=== PATIENT | female | born 1955 | race Caucasian/White ===

== ENCOUNTER 2016-09-26 08:31 | Outpatient (CLI) | payer OTHER ==
[~2016-09-26] VITALS: Ht 161.3 cm; Wt 85.7 kg
[~2016-09-26 08:31] MED LIST: ADAL10SY SQ; BNZ20T GT; CHOL200010 PO; EST1.25T PO; FOLI1TAB24 PO; HYDR-3857 PO; LVT.15T PO; METH2.5T PO; MOVE FREE ULTR1 EACH PO; OXYC10TA7 PO; POTA99TA7 PO; PRED5TAB PO; TRAM50TA2 PO
--- OUTSIDE RECORDS SUMMARY | 2016-09-26 08:33 | XMS REPORT | Continuity of Care Document ---
Author Author [facility] Organization [facility] Address Unknown Phone Unavailable Care Team Providers Care Soup Mixer Name Role Phone MAANDA OGLESBY MD PCP Insurance Providers Payer Name Policy Number Subscriber Name Relationship Unknown Advance Directives Directive Response Recorded Date/Time Advance Directives No 01/19/15 10:00am Health Care Power of Archivist Political History No 01/19/15 10:00am Organ Donor No 01/19/15 10:00am Resuscitation Status Full Code 01/19/15 10:00am Problems No known problems or medical conditions. Medications Medication Dose Route Sig Days/Qty Instructions Order Date Discontinued Date Status Benazepril Hcl 20 Mg GT DAILY 01/19/15 Active Estrogens Conjugated 1.25 Mg PO DAILY 01/19/15 Active Levothyroxine Sodium (Levothroid) 150 Mcg PO DAILY 01/19/15 Active Methotrexate Sodium 2.5 Mg PO WEEKLY 01/19/15 Active Prednisone 5 Mg PO DAILY 01/19/15 Active Adalimumab 10 Mg SQ WEEKLY 01/19/15 Active Folic Acid 1 Mg PO DAILY 01/19/15 Active Hydrocodone Bit/Acetaminophen 1 Each PO EVERY 8HRS 01/19/15 Active Tramadol Hcl 50 Mg PO DAILY 01/19/15 Active Cholecalciferol 2,000 Unit PO DAILY 01/19/15 Active Potassium 99 Mg PO DAILY 01/19/15 Active Cartilage/Collagen II/Hyaluron 1 Each PO DAILY 01/19/15 Active Social History Social History Problem Response Recorded Date/Time Recent Foreign Travel No 01/19/2015 10:00am Smoking Status Never a Smoker 01/19/2015 10:00am Query Response Start Date Stop Date Smoking Status Never a Smoker Hospital Discharge Instructions No hospital discharge instructions. Plan of Care No plan of care. Functional Status No functional status results. Allergies, Adverse Reactions, Alerts Allergen Type Severity Reaction Status Last Updated No Known Drug Allergies Active 01/18/15 Immunizations No immunization records. Vital Signs Acute Vital Signs Vital Response Date/Time Temperature (Fahrenheit) 98.2 degrees F (97.6 - 99.5) Temperature (Calculated Celsius) 36.26534 degrees C (36.4 - 37.5) Temperature Source Tympanic Pulse Rate (adult) 84 bpm (60 - 90) Respiratory Rate 18 bpm (12 - 24) O2 Sat by Pulse Oximetry 95 % (88 - 100) Blood Pressure 172/75 mm Hg Pain Pain Intensity 0 Height (Feet) 5 feet Height (Inches) 3.50 inches Height (Calculated Centimeters) 161.269703 cm Weight (Pounds) 206 pounds Weight (Calculated Grams) 91367.029 gm Weight (Calculated Kilograms) 93.030046 kilograms Calculated BMI 35.91 Results No known relevant diagnostic tests, laboratory data and/or discharge summary. Procedures Procedure Status Date Provider(s) Diagnostic colonoscopy completed 01/19/15 OLIVIA BAUMAN MD Encounters Encounter Location Date/Time Registered [facility] 01/19/15 9:53am Registered Clinic [facility] 01/17/15 10:45am
[2016-09-26] MEDS ORDERED: TRIAMCINOLONE ACET (KENALOG-40) 40 MG/ML 1 ML VIAL ONE ×2 (08:35→08:49)
[2016-09-26] MEDS ORDERED: BUPIVACAINE 0.25% 30 ML (SENSORCAINE) VIAL ONE (08:36)
[2016-09-26 08:47] VITALS: BP 145/80
[2016-09-26 09:34] VITALS: BP 143/105
--- NOTE | 2016-09-26 12:49 | Pain Medicine-Procedure ---
Procedure Pre-Op/Post-Op Diagnosis Diagnosis: disc disorder with radiculopathy, lumbar Indications for Operation Low back and hip pain Attending Surgeon Eloise Procedure Date of Service: Sep 26, 2016 Procedure: Lumbar Epidural Steroid Injection at the L5/S1 Level under Fluoroscopic Guidance and bilateral sacroiliac joint injections Procedure: Patient was identified in the holding area. After risks, benefits, and alternatives were discussed with the patient, informed consent was obtained. Patient was brought to the fluoroscopy suite and placed prone on the procedure room table. A time out was performed. Vital signs were monitored throughout the procedure. The patients low back was prepped and draped in the usual sterile fashion. The patients skin was anesthetized using 2% Lidocaine. A Tuohy needle was inserted and advanced to the L4-L5 epidural space under fluoroscopic guidance using the loss of resistance technique and intermittent projection of fluoroscopy. There was no paresthesia with needle placement. The needle position was confirmed in both the AP and lateral view. Aspiration was then positive for blood and the needle was withdrawn. The patients skin was anesthetized using 2% Lidocaine. A Tuohy needle was inserted and advanced to the L5-S1 epidural space under fluoroscopic guidance using the loss of resistance technique and intermittent projection of fluoroscopy. There was no paresthesia with needle placement. After negative aspiration 2ml of non-ionic contrast was injected under live fluoroscopy which showed good spread of the contrast in the epidural space at the appropriate level, there was no intravascular or subarachnoid spread. Again, after negative aspiration for heme or CSF, 2 ml of 0.25% Bupivicaine, 2ml of preservative free normal saline, and 80mg of Kenalog was injected. The needle was removed and a sterile bandage was placed. Attention was then directed to the right sacroiliac joint which was identified under fluoroscopic guidance. The skin overlying the posterior inferior one third of the sacroiliac joint was anesthetized with 1 percent lidocaine and a 22 -gauge 3-1/2 inch needle was inserted and advanced into the joint. Following negative aspiration a total of 20 mg of Kenalog and 2 mL of 0.25 percent bupivacaine was injected. Needle was flushed with lidocaine and removed. Attention was then directed to the left sacroiliac joint were the same procedure was performed and the same solution was injected. Sterile bandages were applied. Patient tolerated the procedures well with no apparent complications. Complications None SENAIT YANG MD Sep 26, 2016 12:49 pm
== END 2016-09-26 09:36 | disposition home or self-care (01) ==
LOC: CARD 08:31
PROVIDERS: ATTEND Pain Medicine Pain Medicine
DX: M51.16 Intervertebral disc disorders with radiculopathy, lumbar region (principal); M53.3 Sacrococcygeal disorders, not elsewhere classified; Z79.899 Other long term (current) drug therapy
CPT/HCPCS: 27096; 62323

== ENCOUNTER → 2016-11-20 | Outpatient (CLI) | payer OTHER ==
--- NOTE | 2016-11-20 14:18 | Diagnostic Imaging Report ---
PROCEDURE: MRI lumbar spine. TECHNIQUE: Multiplanar, multisequence MRI of the lumbar spine was performed without contrast. INDICATION: Low back pain. FINDINGS: There is grade 1 spondylolisthesis of L4 over L5. There are preserved vertebral body heights. There is disc desiccation at all levels. Significant disc height loss at L3/4 and to a lesser extent at L2/3, L4/5, and L5/S1 levels seen. There is edema in the marrow around endplates of L4/5 and L1/2 levels with less prominent degree of edema around all other endplates in the lumbar spine. The spinal cord and cauda equina appear grossly unremarkable. Mild disc herniations seen in the lower thoracic spine with no significant spinal canal stenosis noted. T12/L1: There is a mild disc bulge and mild facet hypertrophy with no spinal canal or foraminal stenosis. At L1/2: There is a diffuse disc bulge, asymmetric to the right side with associated anfk-jl-khgwzydg spinal canal stenosis reducing the AP dimension of the spinal canal to 7.3 mm. The lateral recesses demonstrate mild narrowing bilaterally. The foramina demonstrate no significant stenosis. L2/3: There is diffuse disc bulge and cdnndqmy-ej-tnmqfm facet arthropathy. There is severe spinal canal stenosis reducing the AP dimension of the canal to 5.5 mm and bilateral lateral recess stenosis, moderate on the right and moderate to severe on the left. The foramina demonstrate mild stenosis on the left and no significant stenosis on the right side. L3/4: There is a diffuse disc bulge and moderate facet arthropathy associated with severe spinal canal stenosis reducing the AP dimension of the central canal to 4.2 mm and associated with moderate to severe lateral recess stenosis bilaterally. There is mild foraminal stenosis on the left and moderate foraminal stenosis on the right side with the far lateral aspect of the disc bilaterally but more prominent on the right abutting the exiting spinal nerves on both sides at this level. L4/5: There is grade 1 spondylolisthesis and diffuse disc bulge seen. This is associated with auydnzwo-qh-oxfwzr central canal stenosis reducing the AP dimension of the spinal canal to 6 mm and bilateral severe lateral recess stenosis. There is particularly severe facet arthropathy bilaterally at this level. The lateral recess stenosis is compressing the descending L5 nerve roots, worse on the right side. There is also bilateral foraminal stenosis of a severe degree. L5/S1: There is diffuse disc bulge with no central canal or lateral recess stenosis. There is bilateral foraminal stenosis of moderate degree, worse on the right side. IMPRESSION: Advanced degenerative disc and facet arthropathy with associated grade 1 spondylolisthesis of L4 over L5. There is multilevel severe spinal canal stenosis as described. Dictated by: Dictated on workstation # [id number]
== END ==
LOC: RAD 13:11
PROVIDERS: ATTEND Pain Medicine Pain Medicine
DX: M54.5 Low back pain (principal)
CPT/HCPCS: 72148

== ENCOUNTER 2016-12-22 12:49 | Outpatient (CLI) | payer OTHER ==
[~2016-12-22] VITALS: Ht 161.3 cm; Wt 85.7 kg
[2016-12-22] MEDS ORDERED: BUPIVACAINE 0.25% 30 ML (SENSORCAINE) VIAL ONE (12:53)
[2016-12-22] MEDS ORDERED: TRIAMCINOLONE ACET (KENALOG-40) 40 MG/ML 1 ML VIAL ONE (12:53)
[2016-12-22 13:05] VITALS: BP 149/83
[2016-12-22 14:00] VITALS: BP 149/77
--- NOTE | 2016-12-22 14:40 | Pain Medicine-Procedure ---
Procedure Pre-Op/Post-Op Diagnosis Diagnosis: disc disorder with radiculopathy, lumbar Indications for Operation Low back and hip pain Attending Surgeon Eloise Procedure Date of Service: Dec 22, 2016 Procedure: Lumbar Epidural Steroid Injection at the L5/S1 Level under Fluoroscopic Guidance and bilateral sacroiliac joint injections Procedure: Patient was identified in the holding area. After risks, benefits, and alternatives were discussed with the patient, informed consent was obtained. Patient was brought to the fluoroscopy suite and placed prone on the procedure room table. A time out was performed. Vital signs were monitored throughout the procedure. The patients low back was prepped and draped in the usual sterile fashion. The patients skin was anesthetized using 2% Lidocaine. A Tuohy needle was inserted and advanced to the L5-S1 epidural space under fluoroscopic guidance using the loss of resistance technique and intermittent projection of fluoroscopy. There was no paresthesia with needle placement. The needle position was confirmed in both the AP and lateral view. After negative aspiration 2ml of non-ionic contrast was injected under live fluoroscopy which showed good spread of the contrast in the epidural space at the appropriate level, there was no intravascular or subarachnoid spread. Again, after negative aspiration for heme or CSF, 2 ml of 0.25% Bupivicaine, 2ml of preservative free normal saline, and 80mg of Kenalog was injected. The needle was removed and a sterile bandage was placed. Attention was then directed to the right sacroiliac joint which was identified under fluoroscopic guidance. The skin overlying the posterior inferior one third of the sacroiliac joint was anesthetized with 1 percent lidocaine and a 22 -gauge 3-1/2 inch needle was inserted and advanced into the joint. Following negative aspiration a total of 20 mg of Kenalog and 2 mL of 0.25 percent bupivacaine was injected. Needle was flushed with lidocaine and removed. Attention was then directed to the left sacroiliac joint were the same procedure was performed and the same solution was injected. Sterile bandages were applied. Patient tolerated the procedures well with no apparent complications. Complications None SENAIT YANG MD Dec 22, 2016 2:40 pm
== END 2016-12-22 14:01 | disposition home or self-care (01) ==
LOC: CARD 12:49
PROVIDERS: ATTEND Pain Medicine Pain Medicine
DX: M51.16 Intervertebral disc disorders with radiculopathy, lumbar region (principal); M53.3 Sacrococcygeal disorders, not elsewhere classified; Z79.899 Other long term (current) drug therapy
CPT/HCPCS: 27096; 62323

== ENCOUNTER 2017-01-08 09:26 | Outpatient (RCR) | payer OTHER | END 2017-01-19 12:36 | disposition home or self-care (01) | PROVIDERS: ATTEND Physician Assistant | DX: M48.06 Spinal stenosis, lumbar region (principal); M43.16 Spondylolisthesis, lumbar region ==

== ENCOUNTER 2019-07-12 14:43 | Emergency (ER) | payer MEDICARE, OTHER ==
[~2019-07-12] VITALS: Ht 160 cm; Wt 81.6 kg
[2019-07-12] MEDS ORDERED: ASPIRIN 81 MG CHEW (CHILDREN'S ASA) PO ONE (15:15)
[2019-07-12 15:38] LABS: BASOPHILS % (AUTO) 0 % (0-10); EOSINOPHILS # (AUTO) 0.1 10^3/uL (0.0-0.3); EOSINOPHILS % (AUTO) 1 % (0-10); HEMATOCRIT 42 % (35-52); HEMOGLOBIN 14.1 G/DL (11.5-16.0); LYMPHOCYTES # (AUTO) 1.7 X 10^3 (1.0-4.0); LYMPHOCYTES % (AUTO) 26 % (12-44); MEAN CORPUSCULAR HEMOGLOBIN 34 PG (25-34); MEAN CORPUSCULAR HGB CONC 34 G/DL (32-36); MEAN CORPUSCULAR VOLUME 99 FL (80-99); MEAN PLATELET VOLUME 8.8 FL (7.4-10.4); MONOCYTES # (AUTO) 0.7 X 10^3 (0.0-1.0); MONOCYTES % (AUTO) 11 % (0-12); NEUTROPHILS % (AUTO) 62 % (42-75); PLATELET COUNT 296 10^3/uL (130-400); RED CELL DISTRIBUTION WIDTH 14.2 % (10.0-14.5); WHITE BLOOD COUNT 6.5 10^3/uL (4.3-11.0)
[2019-07-12 16:02] LABS: ALANINE AMINOTRANSFERASE 24 U/L (0-55); ALBUMIN 4.2 GM/DL (3.2-4.5); ALKALINE PHOSPHATASE 81 U/L (40-136); BILIRUBIN,TOTAL 0.5 MG/DL (0.1-1.0); BUN/CREATININE RATIO 19; CALCIUM 9.7 MG/DL (8.5-10.1); CARBON DIOXIDE 24 MMOL/L (21-32); CHLORIDE 105 MMOL/L (98-107); CREATININE SERUM 0.91 MG/DL (0.60-1.30); GFR ESTIMATED > 60; GLUCOSE 98 MG/DL (70-105); MAGNESIUM 1.9 MG/DL (1.6-2.4); POTASSIUM 4.3 MMOL/L (3.6-5.0); SODIUM 137 MMOL/L (135-145); TOTAL PROTEIN 8.4 GM/DL (6.4-8.2)
--- NOTE | 2019-07-12 16:05 | Diagnostic Imaging Report ---
INDICATION: Shortness of breath. Portable chest at 03:55 p.m. FINDINGS: Heart size and pulmonary vascularity are normal. Lungs are clear. There are no effusions or pneumothoraces. IMPRESSION: Negative chest. Dictated by: Dictated on workstation # [id number]
[2019-07-12 16:20] LABS: INR 0.9 (0.8-1.4); PROTHROMBIN TIME PATIENT 12.7 SEC (12.2-14.7)
--- NOTE | 2019-07-12 16:29 | ED Dyspnea ---
General Chief Complaint: Cardiac/General Problems Stated Complaint: ELEV HR Nursing Triage Note: last couple weeks has been having difficulty with increased sob with activity and heaviness in chest area also feels heart rate increase with activity, dizziness as well. Source of Information: Patient Exam Limitations: No Limitations History of Present Illness Date Seen by Provider: Jul 12, 2019 Time Seen by Provider: 16:27 Initial Comments To ER per private vehicle from Dr. Mclean's office where she presented with dyspnea progressive over the past 2 weeks. No history of this. She does have a history of lupus, arthritis, on prednisone daily and hypothyroidism. She reports chest heaviness, constant for about 2 weeks. She reports sensation of tachycardia. No fever or chills or cough. She was noted in his office to be ta chycardic at about 115 to 120 and slightly hypoxic at 93% room air. Severity: Moderate Activities at Onset: None Prior Episodes/Possible Cause: No Prior Episodes Associated Symptoms: Denies Symptoms Allergies and Home Medications Allergies Coded Allergies: No Known Drug Allergies (Unverified , 01/18/15) Home Medications Adalimumab 10 Mg/0.2 Ml Syringekit, 10 MG SQ WEEKLY, (Reported) Benazepril Hcl 20 Mg Tab, 20 MG GT DAILY, (Reported) Cartilage/Collagen II/Hyaluron 1 Each Tablet, 1 EACH PO DAILY, (Reported) Cholecalciferol 2,000 Unit Tablet, 2,000 UNIT PO DAILY, (Reported) Estrogens Conjugated 1.25 Mg Tab, 1.25 MG PO DAILY, (Reported) Folic Acid 1 Mg Tablet, 1 MG PO DAILY, (Reported) Hydrocodone Bit/Acetaminophen Y Tab, 1 EACH PO Q8H, (Reported) Levothyroxine Sodium 150 Mcg Tablet, 150 MCG PO DAILY, (Reported) Methotrexate Sodium 2.5 Mg Tablet, 2.5 MG PO WEEKLY, (Reported) Oxycodone HCl 10 Mg Tablet, 10 MG PO Q4H Prescribed by: SHANDRA THOMAS on 01/19/161808 Potassium 99 Mg Tablet, 99 MG PO DAILY, (Reported) Prednisone 5 Mg Tablet, 5 MG PO DAILY, (Reported) Tramadol Hcl 50 Mg Tablet, 50 MG PO DAILY, (Reported) Patient Home Medication List Home Medication List Reviewed: Yes Review of Systems Review of Systems Constitutional: see HPI EENTM: see HPI Respiratory: see HPI, dyspnea on exertion, short of breath Cardiovascular: no symptoms reported Genitourinary: no symptoms reported Musculoskeletal: no symptoms reported Skin: no symptoms reported Psychiatric/Neurological: No Symptoms Reported Endocrine: No Symptoms Reported Hematologic/Lymphatic: No Symptoms Reported Past Eagjqcz-Emfwti-Zrdnbt Hx Patient Social History Alcohol Use: Rarely Uses Recreational Drug Use: No Smoking Status: Never a Smoker Recent Foreign Travel: No Contact w/Someone Who Travel: No Recent Infectious Disease Expo: No Past Medical History Surgeries: Yes Appendectomy, Eye Surgery, Hysterectomy, Orthopedic Respiratory: No Cardiac: Yes Hypertension Neurological: No [employer] History: Hysterectomy Genitourinary: No Gastrointestinal: No Musculoskeletal: Yes Rheumatoid Arthritis Endocrine: Yes (THYROID) Hypothyroidsim HEENT: No Cancer: No Psychosocial: No Blood Disorders: No Physical Exam Vital Signs Vital Signs - First Documented 07/12/19 15:04 Temp 37.1 Pulse 119 Resp 20 B/P (MAP) 123/78 (93) Pulse Ox 97 Capillary Refill : Less Than 3 Seconds Height, Weight, BMI Height: 5'3.50" Weight: 189lbs. 0.0oz. 85.749502tz; 31.00 BMI Method:Stated General Appearance: No Apparent Distress, WD/WN HEENT: PERRL/EOMI, Normal ENT Inspection Neck: Full Range of Motion, Normal Inspection; No JVD Respiratory: Normal Breath Sounds, No Accessory Muscle Use, No Respiratory Distress; No Crackles Cardiovascular: Normal Peripheral Pulses, Tachycardia Gastrointestinal: Non Tender, Soft Extremity: Normal Capillary Refill, Normal Inspection Neurologic/Psychiatric: Alert, Oriented x3 Skin: Normal Color, Warm/Dry Progress/Results/Core Measures Results/Orders Lab Results Laboratory Tests Test 07/12/19 15:30 Range/Units White Blood Count 6.5 4.3-11.0 10^3/uL Red Blood Count 4.20 L 4.35-5.85 10^6/uL Hemoglobin 14.1 11.5-16.0 G/DL Hematocrit 42 35-52 % Mean Corpuscular Volume 99 80-99 FL Mean Corpuscular Hemoglobin 34 25-34 PG Mean Corpuscular Hemoglobin Concent 34 32-36 G/DL Red Cell Distribution Width 14.2 10.0-14.5 % Platelet Count 296 130-400 10^3/uL Mean Platelet Volume 8.8 7.4-10.4 FL Neutrophils (%) (Auto) 62 42-75 % Lymphocytes (%) (Auto) 26 12-44 % Monocytes (%) (Auto) 11 0-12 % Eosinophils (%) (Auto) 1 0-10 % Basophils (%) (Auto) 0 0-10 % Neutrophils # (Auto) 4.0 1.8-7.8 X 10^3 Lymphocytes # (Auto) 1.7 1.0-4.0 X 10^3 Monocytes # (Auto) 0.7 0.0-1.0 X 10^3 Eosinophils # (Auto) 0.1 0.0-0.3 10^3/uL Basophils # (Auto) 0.0 0.0-0.1 10^3/uL Prothrombin Time 12.7 12.2-14.7 SEC INR Comment 0.9 0.8-1.4 Activated Partial Thromboplast Time 31 24-35 SEC Sodium Level 137 135-145 MMOL/L Potassium Level 4.3 3.6-5.0 MMOL/L Chloride Level 105 98-107 MMOL/L Carbon Dioxide Level 24 21-32 MMOL/L Anion Gap 8 5-14 MMOL/L Blood Urea Nitrogen 17 7-18 MG/DL Creatinine 0.91 0.60-1.30 MG/DL Estimat Glomerular Filtration Rate > 60 BUN/Creatinine Ratio 19 Glucose Level 98 70-105 MG/DL Calcium Level 9.7 8.5-10.1 MG/DL Corrected Calcium 9.5 8.5-10.1 MG/DL Magnesium Level 1.9 1.6-2.4 MG/DL Total Bilirubin 0.5 0.1-1.0 MG/DL Aspartate Amino Transf (AST/SGOT) 35 H 5-34 U/L Alanine Aminotransferase (ALT/SGPT) 24 0-55 U/L Alkaline Phosphatase 81 40-136 U/L Myoglobin 51.8 10.0-92.0 NG/ML Troponin I < 0.028 <0.028 NG/ML B-Type Natriuretic Peptide < 10.0 <100.0 PG/ML Total Protein 8.4 H 6.4-8.2 GM/DL Albumin 4.2 3.2-4.5 GM/DL Thyroid Stimulating Hormone (TSH) 0.02 L 0.35-4.94 UIU/ML Free Thyroxine 1.36 0.70-1.48 NG/DL My Orders Orders - RENNY GONZALEZ METAL TECHNICIAN Cbc With Automated Diff (07/12/19 15:11) Magnesium (07/12/19 15:11) Chest 1 View, Ap/Pa Only (07/12/19 15:11) Ekg Tracing (07/12/19 15:11) Cardiac Profile 1 (07/12/19 15:11) Comprehensive Metabolic Panel (07/12/19 15:11) Myoglobin Serum (07/12/19 15:11) Protime With Inr (07/12/19 15:11) Partial Thromboplastin Time (07/12/19 15:11) O2 (07/12/19 15:11) Monitor-Rhythm Ecg Trace Only (07/12/19 15:11) Lipid Panel (07/13/19 06:00) Ed Iv/Invasive Line Start (07/12/19 15:11) Aspirin Chewable Tablet (Baby Aspirin Ch (07/12/19 15:15) BNP (07/12/19 16:25) Thyroid Stimulating Hormone (07/12/19 16:25) Free T4 (Free Thyroxine) (07/12/19 16:25) Ct Angio Chest W (07/12/19 16:26) Iohexol Injection (Omnipaque 350 Mg/Ml 1 (07/12/19 17:00) Received Contrast (Hold Metformin- Contr (07/12/19 17:00) Ns (Ivpb) (Sodium Chloride 0.9% Ivpb Bag (07/12/19 17:00) Medications Given in ED Current Medications Medications Dose Ordered Sig/Haley Route Start Time Stop Time Status Last Admin Dose Admin Aspirin 324 mg ONCE ONCE PO 07/12/19 15:15 07/12/19 15:16 DC 07/12/19 15:40 324 MG Iohexol 75 ml ONCE ONCE IV 07/12/19 17:00 07/12/19 17:01 DC 07/12/19 17:05 75 ML Sodium Chloride 100 ml ONCE ONCE IV 07/12/19 17:00 07/12/19 17:01 DC 07/12/19 17:05 100 ML Vital Signs/I&O 07/12/19 15:04 Temp 37.1 Pulse 119 Resp 20 B/P (MAP) 123/78 (93) Pulse Ox 97 Blood Pressure Mean: 93 POS Departure Impression Primary Impression: Bilateral pneumonia Qualified Codes: J18.9 - Pneumonia, unspecified organism Disposition: HOME, SELF-CARE Condition: Stable Departure-Patient Inst. Decision time for Depature: 17:37 Referrals: AMANDA OGLESBY MD (PCP/Family) Primary Care Physician Patient Instructions: Chest Pain (DC) Add. Discharge Instructions: 1. Return to ER for any worsening. Follow-up with Dr. Oglesby later this week for recheck. Inhaler 2 puffs every 4 hours and antibiotics as directed. All discharge instructions reviewed with patient and/or family. Voiced understandi ng. Scripts Doxycycline Hyclate (Doxycycline Hyclate) 100 Mg Tablet 100 MG PO BID, #20 TAB 0 Refills Prov: RENNY GONZALEZ APRN 07/12/19 Albuterol Sulfate (PROAIR HFA) 1 Puff Puff 2 PUFF IH Q4H PRN for WHEEZING, #1 PUFF 1 PUFF = 90 MCG Prov: RENNY GONZALEZ APRN 07/12/19 Copy Copies To 1: AMANDA OGLESBY MD, PETER J APRN Jul 12, 2019 16:29 POS
[2019-07-12] MEDS ORDERED: NS 100 ML (IVPB) BAG IV ONE (17:00)
[2019-07-12] MEDS ORDERED: IOHEXOL 350 MG/ML 100 ML (OMNIPAQUE 350) VIAL IV ONE (17:00)
[2019-07-12] MEDS ORDERED: HOLD METFORMIN - RECEIVED CONTRAST 20 ML VIAL IV SCH (17:00)
[2019-07-12 17:09] LABS: FREE T4 (FREE THYROXINE) 1.36 NG/DL (0.70-1.48)
--- NOTE | 2019-07-12 17:11 | Diagnostic Imaging Report ---
PROCEDURE: CT angiography of the chest with contrast. TECHNIQUE: Multiple contiguous axial images were obtained through the chest after uneventful bolus administration of intravenous contrast. 3D reconstructed CTA MIP acquisitions were also performed. Auto Exposure Controls were utilized during the CT exam to meet ALARA standards for radiation dose reduction. INDICATION: Shortness of air on exertion as well as lightheadedness. COMPARISON: No prior studies are available for comparison. FINDINGS: Pulmonary arterial system is without evidence of thromboembolism. No definite filling defects are seen within central, lobar, or segmental branches. The thoracic aorta is normal caliber. No dissection is seen. No pericardial or pleural fluid is detected. Patchy groundglass opacities in bilateral upper lobes and bilateral lower lobes are seen. No discrete mass is detected. Upper abdomen demonstrates a small nodule involving the left adrenal gland measuring 15 mm. This is stable when compared with CT dating back to February 2015. IMPRESSION: 1. No evidence of pulmonary embolism or thoracic aortic dissection. 2. There are patchy groundglass infiltrates in bilateral lungs. No other significant abnormality is seen. Dictated by: Dictated on workstation # [id number]
[2019-07-12] MEDS ORDERED: RT-ALBUINH IH ×2 (17:40→17:58)
[2019-07-12] MEDS ORDERED: DOXY100T2 PO ×2 (17:40→17:58)
[2019-07-12] MEDS ORDERED: cefTRIAXone FOR IV USE 1,000 MG in WATER (STERILE) FOR INJECTION 10 ML IV ONE (17:45)
[2019-07-12] MEDS ORDERED: DOXYCYCLINE 100 MG (VIBRAMYCIN) TABLET PO SCH (18:00)
[2019-07-12 18:01] VITALS: BP 120/95
== END 2019-07-12 18:01 | disposition home or self-care (01) ==
LOC: EDUNIT# 14:43 → ER 14:44
DX: J18.9 Pneumonia, unspecified organism (principal); E03.9 Hypothyroidism, unspecified; I10 Essential (primary) hypertension; M06.9 Rheumatoid arthritis, unspecified; Z79.52 Long term (current) use of systemic steroids; Z90.49 Acquired absence of other specified parts of digestive tract; Z90.710 Acquired absence of both cervix and uterus
CPT/HCPCS: 36415; 71045; 71275; 80053; 83735; 83874; 83880; 84439; 84443; 84484; 85025; 85610; 85730; 93005; 93041

== ENCOUNTER → 2019-07-18 | Outpatient (CLI) | payer MEDICARE, OTHER ==
[~2019-07-18] MED LIST changes: +DOXY100T2 PO; +RT-ALBUINH IH
--- NOTE | 2019-07-18 11:16 | Diagnostic Imaging Report ---
INDICATION: Dyspnea. PA and lateral views of the chest are obtained with comparison made study of 07/12/2019. FINDINGS: Overall heart size and pulmonary vascularity are within normal limits. There is mild increased density in the perihilar regions which may be due to edema or pneumonitis. There is no consolidation, pneumothorax or significant pleural fluid. IMPRESSION: Increased perihilar density which may represent pulmonary edema or pneumonitis. Otherwise no consolidated pneumonia or other adverse change is seen. Dictated by: Dictated on workstation # [id number]
== END ==
LOC: RAD 10:36
PROVIDERS: ATTEND Family Medicine
DX: J98.4 Other disorders of lung (principal); R06.00 Dyspnea, unspecified; R05 Cough
CPT/HCPCS: 71046

== ENCOUNTER → 2019-08-02 | Outpatient (CLI) | payer MEDICARE, OTHER ==
--- NOTE | 2019-08-02 11:46 | Diagnostic Imaging Report ---
INDICATION: Cough, dyspnea. TECHNIQUE: Two-view chest at 10:23 a.m. CORRELATION STUDY: 07/18/2019. FINDINGS: Heart size is stable. Bilateral perihilar infiltrates and/or vascular congestion is present. No peripheral consolidation. Findings appear relatively stable. Advanced degenerative change about the thoracic spine. Partial visualization of lumbar spinal fixation hardware. IMPRESSION: 1. Bilateral perihilar infiltrates versus edema do persist, overall generally stable. Dictated by: Dictated on workstation # [id number]
== END ==
LOC: RAD 10:04
PROVIDERS: ATTEND Family Medicine
DX: R05 Cough (principal); R06.00 Dyspnea, unspecified
CPT/HCPCS: 71046

== ENCOUNTER → 2020-02-20 | Outpatient (CLI) | payer MEDICARE, OTHER | LOC: CARD 11:41 | PROVIDERS: ATTEND Family Medicine | DX: R00.2 Palpitations (principal) | CPT/HCPCS: 93005 ==

== ENCOUNTER → 2023-04-03 | Outpatient (CLI) | payer MEDICARE, OTHER ==
[~2023-04-03] MED LIST changes: +ALBU8.5H6 IH; -RT-ALBUINH IH
--- NOTE | 2023-04-03 09:51 | Diagnostic Imaging Report ---
INDICATION: Dyspnea PA and lateral chest obtained at 0931 a.m. and compared to 08/02/2019. Heart and mediastinal silhouette are normal in appearance. There are chronic appearing increased interstitial markings which are similar to the prior study. There is no pneumothorax or pleural fluid or focal infiltrate. IMPRESSION: Chronic appearing increased interstitial markings are similar to the prior study. There is no acute abnormality. Dictated by: Dictated on workstation # [id number]
== END ==
LOC: CARD 09:18
PROVIDERS: ATTEND Family Medicine
DX: J84.9 Interstitial pulmonary disease, unspecified (principal)
CPT/HCPCS: 71046; 93005